=== PATIENT | female | born 2000 | race Caucasian/White ===

== ENCOUNTER 2022-10-17 12:28 | Emergency (ER) | payer OTHER ==
[2022-10-17 12:37] VITALS: BP 134/77
--- NOTE | 2022-10-17 12:51 | ED Physician Documentation ---
History of Present Illness - Stated complaint Stated Complaint: SWELLING L SIDE HEAD/SKIN RASHES - Chief complaint Chief Complaint: Heent - History obtained from History obtained from: Patient - Additonal information Additional information: She had a cold 2 weeks ago. That is much better with still some residual congestion. About 4 to 5 days ago developed scalp pain on the left. It goes up into the superior scalp and behind the ear. She was seen at the walk-in clinic and diagnosed with mastoiditis. Put on Augmentin, mupirocin, and triamcinolone. She was told to come to the emergency department if it was not better. It is not. She denies fevers. No hearing deficit. No visual symptoms. PD PAST MEDICAL HISTORY - Present Medications Home Medications: Ambulatory Orders Medication Instructions Recorded Confirmed Valacyclovir HCl [Valtrex] 1,000 mg PO TID #30 tablet 10/17/22 predniSONE [Deltasone] 20 mg PO [id number] #21 tab 10/17/22 - Allergies Allergies/Adverse Reactions: Allergies Allergy/AdvReac Type Severity Reaction Status Date / Time No Known Drug Allergies Allergy Verified 10/17/22 12:37 PD ED PE NORMAL - Vitals Vital signs reviewed: Yes - General General: Alert and oriented X 3, No acute distress - HEENT HEENT: Other (There is a tender left postauricular lymph node. No otitis media. The canal is normal on that side. She is not tender over the mastoid per se. There is some skin changes behind the ear that could be shingles, does not look like cellulitis.) - Neck Neck: Supple, no meningeal sign, No bony TTP - Neuro Neuro: Alert and oriented X 3, puffer tender 2-12 intact, Normal speech - Psych Psych: Normal mood, Normal affect Results - Vitals Vitals: Vital Signs - 24 hr 10/17/22 12:33 Temperature 36.7 C Heart Rate 102 H Respiratory 16 Rate Blood Pressure 134/77 H O2 Saturation 100 Oxygen O2 Source Room air - Labs Labs: Laboratory Tests 10/17/22 10/17/22 13:10 13:10 WBC 6.9 RBC 4.67 Hgb 14.3 Hct 45.2 MCV 96.8 MCH 30.6 MCHC 31.6 L RDW 12.1 Plt Count 399 MPV 8.5 Neut # (Auto) 4.3 Lymph # (Auto) 1.8 [facility] # (Auto) 0.7 Eos # (Auto) 0.1 Baso # (Auto) 0.0 Absolute Nucleated RBC 0.00 Nucleated RBC % 0.0 Sodium 139 Potassium 4.1 Chloride 105 Carbon Dioxide 28 Anion Gap 6.0 BUN 10 Creatinine 0.6 Estimated GFR (MDRD) 123 Glucose 101 H Calcium 9.4 - Rads (name of study) CT of the head without contrast is normal, specifically the mastoids are normal. Relevant Findings:: Final report received, EMP independent interpretation of test PD Medical Decision Making - ED course ED course: 22-year-old woman diagnosed with possible mastoiditis at the walk-in clinic. It actually looks a little more like a very mild case of shingles to me. She has no otitis. CBC normal. BMP normal. Head CT done without evidence of mastoiditis or other abnormality. We will treat for presumptive shingles. Departure - Departure Disposition: 01 Home, Self Care Clinical Impression: Scalp pain Condition: Good Record reviewed to determine appropriate education?: Yes Instructions: ED Acute Pain [facility] Prescriptions: predniSONE [Deltasone] 20 mg PO [id number] #21 tab Valacyclovir HCl [Valtrex] 1,000 mg PO TID #30 tablet Comments: I sent your prescriptions electronically to the [facility] in [place]. As discussed, it seems that potentially this might be mild shingles. Your mastoids are clear on the CT and your blood work is normal. I think you can stop the antibiotics as I do not really see any evidence of bacterial infection. Return if worse or if not improving over the next 48 hours. Discharge Date/Time: 10/17/22 14:12
[2022-10-17] MEDS ORDERED: iohexoL-300 100 ML VIAL ONE (13:03)
[2022-10-17 13:25] LABS: CALCIUM 9.4 mg/dL (8.5-10.3); CREATININE 0.6 mg/dL (0.4-1.0); POTASSIUM 4.1 mmol/L (3.5-5.0)
--- NOTE | 2022-10-17 13:36 | CT Report ---
PROCEDURE: HEAD WO INDICATIONS: L scalp pain TECHNIQUE: Noncontrast 4.5 mm thick angled axial sections acquired from the foramen magnum to the vertex. For r adiation dose reduction, the following was used: automated exposure control, adjustment of mA and/or kV according to patient size. COMPARISON: None. FINDINGS: Image quality: Excellent. CSF spaces: Basal cisterns are patent. No extra-axial fluid collections. Ventricles are normal in size and shape. Brain: No midline shift. No intracranial masses or hemorrhage. Gudino-white matter interface is norm al. Skull and face: Calvarium and visualized facial bones are intact, without suspicious lesions. Sinuses: Visualized sinuses and mastoids are clear. IMPRESSION: No acute intracranial abnormality. Reviewed by: Avelino Vargas MD on 10/17/2022 1:35 PM PDT Approved by: Avelino Vargas MD on 10/17/2022 1:35 PM PDT Station ID: [id number]
[2022-10-17 13:44] LABS: BASOPHILS % (AUTO) 0.6 %; EOSINOPHILS # (AUTO) 0.1 10^3/uL (0.0-0.7); EOSINOPHILS % (AUTO) 1.2 %; HCT - HEMATOCRIT 45.2 % (37.0-47.0); HGB - HEMOGLOBIN 14.3 g/dL (12.0-16.0); LYMPHOCYTES # (AUTO) 1.8 10^3/uL (1.5-3.5); LYMPHOCYTES % (AUTO) 25.7 %; MEAN CORPUSCULAR HEMOGLOBIN 30.6 pg (27.0-31.0); MEAN CORPUSCULAR HGB CONC 31.6 g/dL (32.0-36.0); MEAN CORPUSCULAR VOLUME 96.8 fL (81.0-99.0); MEAN PLATELET VOLUME 8.5 fL (7.9-10.8); MONOCYTES # (AUTO) 0.7 10^3/uL (0.0-1.0); MONOCYTES % (AUTO) 10.2 %; NEUTROPHILS # (AUTO) 4.3 10^3/uL (1.5-6.6); PLT - PLATELET COUNT 399 10^3/uL (130-450); RED BLOOD COUNT 4.67 10^6/uL (4.20-5.40); RED CELL DISTRIBUTION WIDTH 12.1 % (12.0-15.0); WHITE BLOOD COUNT 6.9 x10^3/uL (4.8-10.8)
== END 2022-10-17 14:12 | disposition home or self-care (01) ==
LOC: ED 12:28
DX: R51.9 Headache, unspecified (principal)
CPT/HCPCS: 36415; 80048; 85025; 99284

== ENCOUNTER 2023-05-11 11:44 | Outpatient (CLI) | payer MEDICAID ==
--- NOTE | 2023-05-11 16:38 | Ultrasound Report ---
PROCEDURE: Head or Neck Soft Tissue INDICATIONS: LYMPHADENOPATHY TECHNIQUE: Real-time scanning was performed of the neck, with image documentation. COMPARISON: None FINDINGS: Targeted ultrasound of the neck demonstrates nonenlarged cervical chain lymph nodes, mostly in cervic al chain 2. These maintain a normal reniform shape and fatty hilum. IMPRESSION: Left prominent, but not pathologically enlarged left cervical chain lymph nodes. These a re probably reactive. Consider ultrasound follow-up in 1-2 months. Reviewed by: Fausto Gutierrez on 05/11/2023 4:37 PM PDT Approved by: Fausto Gutierrez on 05/11/2023 4:37 PM PDT Station ID: [id number]
== END 2023-05-11 11:45 | disposition home or self-care (01) ==
LOC: DI 11:44
PROVIDERS: ATTEND Physician Assistant Medical
DX: R59.0 Localized enlarged lymph nodes (principal)